=== PATIENT | female | born 1930 | race Caucasian/White ===

== ENCOUNTER 2016-08-11 13:07 | Inpatient (IN) | payer MEDICARE, MEDICAID ==
[~2016-08-11] VITALS: Ht 167.6 cm; Wt 59.9 kg
[~2016-08-11 13:07] MED LIST: ECON15CR2 TP; LIDO30AD10 TP
[2016-08-11] MEDS ORDERED: IV NS 0.9% 1,000 ML BAG IV ONE ×2 (13:30→14:30)
[2016-08-11] MEDS ORDERED: IV NS 0.9% 1,000 ML ONE ×2 (13:40→14:34)
[2016-08-11] MEDS ORDERED: IV SET PRIMARY PUMP SET 1 EA INFUS.SET MC ONE ×3 (13:40→17:00)
[2016-08-11 13:47] LABS: WHITE BLOOD COUNT (AUTO) 7.7 K/uL (4.3-11.0)
[2016-08-11 13:51] LABS: BASOPHILS % (AUTO) 0.4 % (0.0-2.0); DIFF TOTAL % 100 %; EOSINOPHILS % (AUTO) 0.4 % (0.0-6.0); HEMATOCRIT 29 % (33-45); HEMOGLOBIN 9.6 g/dL (11.5-14.8); LYMPHOCYTES # (AUTO) 0.7 /CMM (0.8-4.8); LYMPHOCYTES % (AUTO) 9.1 % (20.0-44.0); MEAN CORPUSCULAR HEMOGLOBIN 35 PG (26.0-33.0); MEAN CORPUSCULAR HGB CONC 33 g/dl (31.0-36.0); MEAN CORPUSCULAR VOLUME 105 fL (82-100); MONOCYTES # (AUTO) 0.8 /CMM (0.1-1.30); MONOCYTES % (AUTO) 10.6 % (2.0-12.0); NEUTROPHILS # (AUTO) 6.2 /CMM (1.8-8.9); NEUTROPHILS % (AUTO) 79.5 % (43.0-81.0); PLATELET COUNT (AUTO) 89 /CMM (150-450); RED BLOOD CELL COUNT(AUTO) 2.73 MIL/uL (4.0-5.2)
[2016-08-11 13:58] LABS: ANION GAP 17 (5-14); CALCIUM, SERUM 9.2 mg/dL (8.5-10.1); CARBON DIOXIDE 24 mmol/L (21-32); CHLORIDE 101 mmol/L (98-107); CREATININE 2.7 mg/dL (0.6-1.3); GLUCOSE 200 mg/dL (74-106); POTASSIUM 4.1 mmol/L (3.5-5.1); SODIUM SERUM 138 mmol/L (136-145); UREA NITROGEN, BLOOD 79 mg/dL (7-18)
[2016-08-11 14:01] LABS: INR 1.13 (0.87-1.13); PROTHROMBIN TIME 11.9 SECS (9.5-12.7)
[2016-08-11 14:04] LABS: TROPONIN I 0.128 ng/mL (0.00-0.056)
[2016-08-11] MEDS ORDERED: IV NS 0.9% 1,000 ML IV PRN (14:09)
[2016-08-11] MEDS ORDERED: WARF2TAB6 PO (14:11)
[2016-08-11] MEDS ORDERED: ASPI81TA2 PO (14:11)
[2016-08-11 14:13] LABS: LACTIC ACID 2.2 mmol/L (0.4-2.0)
[2016-08-11] MEDS ORDERED: LUBI8CAP PO (14:14)
[2016-08-11] MEDS ORDERED: AZIT250T6 PO (14:14)
[2016-08-11] MEDS ORDERED: AMLO2.5T2 PO (14:14)
[2016-08-11] MEDS ORDERED: CELE-85 PO (14:14)
[2016-08-11] MEDS ORDERED: FAMO20TA8 PO (14:14)
[2016-08-11] MEDS ORDERED: EPOE1VIA SQ (14:14)
[2016-08-11] MEDS ORDERED: SITA100T PO (14:14)
[2016-08-11] MEDS ORDERED: CHOL100044 PO (14:14)
[2016-08-11] MEDS ORDERED: ALLO100T PO (14:17)
[2016-08-11] MEDS ORDERED: CARV3.122 PO (14:17)
[2016-08-11] MEDS ORDERED: FOLI1TAB16 PO (14:17)
[2016-08-11] MEDS ORDERED: SPIR25TA4 PO (14:17)
[2016-08-11] MEDS ORDERED: DOCU-25 PO (14:17)
[2016-08-11] MEDS ORDERED: FERR325T28 PO (14:17)
[2016-08-11 14:19] LABS: ALANINE AMINOTRANSFERASE 18 U/L (12-78); ALBUMIN 3.5 g/dL (3.4-5.0); ASPARTATE AMINOTRANSFERASE 24 U/L (15-37); BILIRUBIN,DIRECT 0.4 mg/dL (0.0-0.2); BILIRUBIN,TOTAL 1.1 mg/dL (0.2-1.0); INDIRECT BILIRUBIN 0.7 mg/dL (0.0-1.1); TOTAL PROTEIN, SERUM 7.3 g/dL (6.4-8.2)
[2016-08-11] MEDS ORDERED: LEVOFLOXACIN 750 MG /D5W 150ML 750 MG in PREMIX 1 EA IV SCH (14:30)
[2016-08-11] MEDS ORDERED: LEVOFLOXACIN 750 MG /D5W 150ML PIGGYBACK IV ONE (14:30)
[2016-08-11] MEDS ORDERED: MAG HYDROX/AL HYDROX/SIMETH 30 ML UDC PO PRN (14:30)
[2016-08-11] MEDS ORDERED: Z GUARD REMEDY 2 OZ OINT TP PRN (14:30)
[2016-08-11] MEDS ORDERED: HYDROCODONE/APAP 5/325MG 1 EACH TABLET PO PRN (14:30)
[2016-08-11] MEDS ORDERED: ZOLPIDEM TARTRATE 5 MG TABLET PO PRN (14:30)
[2016-08-11] MEDS ORDERED: ONDANSETRON HCL/PF 4 MG/2 ML VIAL IVP PRN (14:30)
[2016-08-11] MEDS ORDERED: MAGNESIUM HYDROXIDE 30 ML UDC PO PRN (14:30)
[2016-08-11] MEDS ORDERED: LEVOFLOXACIN 750 MG /D5W 150ML 150 ML IV ONE (14:34)
[2016-08-11 14:44] LABS: *LACTIC ACID REFLEX FLAG YES
[2016-08-11 14:58] LABS: KETONES,URINE Trace (NEGATIVE); LEUKOCYTE ESTERASE ,URINE Negative (NEGATIVE)
[2016-08-11 14:59] LABS: ADD UA MICROSCOPIC YES
[2016-08-11 15:00] LABS: WBC,URINE 0-2 /HPF (0-3)
[2016-08-11 15:01] LABS: ADD URINE CULTURE NO
[2016-08-11] MEDS ORDERED: LIDOCAINE 5% (PATCH) 1 EA PATCH TP PRN (15:30)
[2016-08-11] MEDS ORDERED: LUBIPROSTONE 8 MCG PO SCH (17:00)
[2016-08-11] MEDS: DOCUSATE SODIUM 100 MG CAPSULE PO SCH (17:31)
[2016-08-11] MEDS: ALLOPURINOL 100 MG TABLET PO SCH (17:31)
[2016-08-11] MEDS: FOLIC ACID 1 MG TABLET PO SCH (17:31)
[2016-08-11] MEDS ORDERED: EPOETIN ALFA (40,000 UNIT) 40,000 UNIT/ML VIAL SQ SCH (18:00)
[2016-08-11 19:00] VITALS: BP 98/48
[2016-08-11 20:39] VITALS: BP 98/48
[2016-08-11] MEDS: AMLODIPINE BESYLATE 2.5 MG TABLET PO SCH (21:27)
[2016-08-12 08:00] VITALS: BP 120/52
[2016-08-12] MEDS: FERROUS SULFATE (325 MG) 325 MG/TAB TABLET PO SCH (08:40)
[2016-08-12] MEDS: PANTOPRAZOLE 40 MG TABLET.DR PO SCH (08:40)
[2016-08-12] MEDS: CHOLECALCIFEROL 1,000 UNIT TABLET (VIT D3) PO SCH (08:40)
[2016-08-12] MEDS: ALLOPURINOL 100 MG TABLET PO SCH ×2 (08:40→17:30)
[2016-08-12] MEDS: SITAGLIPTIN PHOSPHATE 50 MG TABLET PO SCH (08:40)
[2016-08-12] MEDS: FOLIC ACID 1 MG TABLET PO SCH ×2 (08:40→17:30)
[2016-08-12] MEDS: ASPIRIN 81 MG TAB.CHEW PO SCH (08:40)
[2016-08-12] MEDS: CARVEDILOL 3.125 MG TABLET PO SCH (08:41)
[2016-08-12] MEDS: DOCUSATE SODIUM 100 MG CAPSULE PO SCH ×3 (08:41→17:30)
[2016-08-12] MEDS ORDERED: SITAGLIPTIN PHOSPHATE 50 MG TABLET PO SCH (09:00)
[2016-08-12] MEDS ORDERED: HEPARIN SODIUM, PORCINE 5000 UNITS/1 ML VIAL IV ONE ×2 (10:30→11:40)
[2016-08-12] MEDS ORDERED: LACTULOSE 10 G/15 ML UDC (PYXIS) PO ONE (11:00)
[2016-08-12 12:33] LABS: DIFF TOTAL % 100 %; EOSINOPHILS # (AUTO) 0.1 /CMM (0.0-0.7); EOSINOPHILS % (AUTO) 1.4 % (0.0-6.0); HEMATOCRIT 29 % (33-45); HEMOGLOBIN 9.7 g/dL (11.5-14.8); LYMPHOCYTES # (AUTO) 0.9 /CMM (0.8-4.8); LYMPHOCYTES % (AUTO) 11.5 % (20.0-44.0); MEAN CORPUSCULAR HEMOGLOBIN 35 PG (26.0-33.0); MEAN CORPUSCULAR HGB CONC 33 g/dl (31.0-36.0); MEAN CORPUSCULAR VOLUME 105 fL (82-100); MONOCYTES # (AUTO) 0.5 /CMM (0.1-1.30); NEUTROPHILS # (AUTO) 6.1 /CMM (1.8-8.9); NEUTROPHILS % (AUTO) 81.1 % (43.0-81.0); PLATELET COUNT (AUTO) 93 /CMM (150-450); WHITE BLOOD COUNT (AUTO) 7.5 K/uL (4.3-11.0)
[2016-08-12 15:00] LABS: BAND % (MANUAL) 3 % (0.0-5.0); LYMPHOCYTES % (MANUAL) 15 % (16-48)
[2016-08-12 15:02] LABS: ANISOCYTOSIS 2+; HYPOCHROMASIA 1+; POIKILOCYTOSIS 1+
[2016-08-12 15:03] LABS: PLATELET ESTIMATE DECRE
[2016-08-12 15:04] LABS: TEAR DROP CELLS OCC
[2016-08-12 16:00] VITALS: BP 128/72
[2016-08-12] MEDS ORDERED: WARFARIN SODIUM 1 MG TABLET PO SCH (17:00)
[2016-08-12 17:53] LABS: THYROID STIMULATING HORMONE 1.071 uIU/mL (0.358-3.74); URIC ACID 5.4 mg/dL (2.6-7.2)
[2016-08-12 19:21] LABS: RETICULOCYTE COUNT 0.6 % (0.6-2.5)
[2016-08-12 20:00] VITALS: BP 152/83
[2016-08-12 22:00] VITALS: BP 152/83
[2016-08-12] MEDS: ATORVASTATIN 10 MG TABLET PO SCH (22:54)
[2016-08-12] MEDS: AMLODIPINE BESYLATE 2.5 MG TABLET PO SCH (22:55)
[2016-08-13] VITALS (14 sets, daily range): BP systolic 118–138; BP diastolic 56–88
[2016-08-13 07:26] LABS: BASOPHILS % (AUTO) 0.2 % (0.0-2.0); DIFF TOTAL % 100 %; EOSINOPHILS # (AUTO) 0.1 /CMM (0.0-0.7); EOSINOPHILS % (AUTO) 0.7 % (0.0-6.0); HEMATOCRIT 26 % (33-45); HEMOGLOBIN 8.8 g/dL (11.5-14.8); LYMPHOCYTES # (AUTO) 0.7 /CMM (0.8-4.8); LYMPHOCYTES % (AUTO) 10.1 % (20.0-44.0); MEAN CORPUSCULAR HEMOGLOBIN 35 PG (26.0-33.0); MEAN CORPUSCULAR HGB CONC 33 g/dl (31.0-36.0); MEAN CORPUSCULAR VOLUME 106 fL (82-100); MONOCYTES # (AUTO) 0.6 /CMM (0.1-1.30); MONOCYTES % (AUTO) 7.8 % (2.0-12.0); NEUTROPHILS % (AUTO) 81.2 % (43.0-81.0); PLATELET COUNT (AUTO) 79 /CMM (150-450); WHITE BLOOD COUNT (AUTO) 7.4 K/uL (4.3-11.0)
[2016-08-13 07:29] LABS: CALCIUM, SERUM 8.8 mg/dL (8.5-10.1); CREATININE 1.7 mg/dL (0.6-1.3)
[2016-08-13 07:34] LABS: INR 1.16 (0.87-1.13); PROTHROMBIN TIME 12.5 SECS (9.5-12.7)
[2016-08-13] MEDS: CARVEDILOL 3.125 MG TABLET PO SCH (08:44)
[2016-08-13] MEDS: CHOLECALCIFEROL 1,000 UNIT TABLET (VIT D3) PO SCH (08:44)
[2016-08-13] MEDS: SITAGLIPTIN PHOSPHATE 50 MG TABLET PO SCH (08:44)
[2016-08-13] MEDS: PANTOPRAZOLE 40 MG TABLET.DR PO SCH (08:44)
[2016-08-13] MEDS: FOLIC ACID 1 MG TABLET PO SCH ×2 (08:44→17:13)
[2016-08-13] MEDS: ASPIRIN 81 MG TAB.CHEW PO SCH (08:44)
[2016-08-13] MEDS: FERROUS SULFATE (325 MG) 325 MG/TAB TABLET PO SCH (08:44)
[2016-08-13] MEDS: ALLOPURINOL 100 MG TABLET PO SCH ×2 (08:45→17:14)
[2016-08-13] MEDS: DOCUSATE SODIUM 100 MG CAPSULE PO SCH ×2 (08:46→17:00)
[2016-08-13 09:16] LABS: BAND % (MANUAL) 3 % (0.0-5.0); EOSINOPHILS % (MANUAL) 2 % (0-4); LYMPHOCYTES % (MANUAL) 6 % (16-48)
[2016-08-13 09:17] LABS: ANISOCYTOSIS 1+; PLATELET ESTIMATE DECREASED
[2016-08-13] MEDS ORDERED: IV NS 0.9% 250 ML IV ONE (14:10)
[2016-08-13] MEDS ORDERED: BLOOD IV SET 1 EA INFUS.SET MC ONE (14:10)
[2016-08-13] MEDS: ACETAMINOPHEN 325 MG TABLET PO PRN (14:29)
[2016-08-13] MEDS: HEPARIN INFUSION/D5W 500 ML IV PRN (14:37)
[2016-08-13] MEDS ORDERED: diphenhydrAMINE HCL 25 MG CAPSULE PO PRN (15:00)
[2016-08-13] MEDS ORDERED: LEVOFLOXACIN 500 MG /D5W 100ML 500 MG in PREMIX 1 EA IV SCH (15:00)
[2016-08-13] MEDS ORDERED: IV SET PRIMARY PUMP SET 1 EA INFUS.SET MC ONE (16:04)
[2016-08-13] MEDS: ATORVASTATIN 10 MG TABLET PO SCH (21:42)
[2016-08-13] MEDS: AMLODIPINE BESYLATE 2.5 MG TABLET PO SCH (21:42)
[2016-08-14] VITALS: BP 155/75
[2016-08-14 01:00] VITALS: BP 142/88
[2016-08-14 04:00] VITALS: BP 141/64
[2016-08-14 07:20] LABS: BASOPHILS % (AUTO) 0.5 % (0.0-2.0); DIFF TOTAL % 100 %; EOSINOPHILS # (AUTO) 0.1 /CMM (0.0-0.7); EOSINOPHILS % (AUTO) 1.6 % (0.0-6.0); HEMATOCRIT 31 % (33-45); HEMOGLOBIN 10.1 g/dL (11.5-14.8); LYMPHOCYTES # (AUTO) 0.7 /CMM (0.8-4.8); LYMPHOCYTES % (AUTO) 10.2 % (20.0-44.0); MEAN CORPUSCULAR HEMOGLOBIN 33 PG (26.0-33.0); MEAN CORPUSCULAR HGB CONC 33 g/dl (31.0-36.0); MEAN CORPUSCULAR VOLUME 100 fL (82-100); MONOCYTES # (AUTO) 0.5 /CMM (0.1-1.30); MONOCYTES % (AUTO) 7.8 % (2.0-12.0); NEUTROPHILS # (AUTO) 5.3 /CMM (1.8-8.9); NEUTROPHILS % (AUTO) 79.9 % (43.0-81.0); RED BLOOD CELL COUNT(AUTO) 3.07 MIL/uL (4.0-5.2); WHITE BLOOD COUNT (AUTO) 6.6 K/uL (4.3-11.0)
[2016-08-14 07:45] LABS: CREATININE 1.5 mg/dL (0.6-1.3)
[2016-08-14 07:47] LABS: INR 1.14 (0.87-1.13); PROTHROMBIN TIME 12.3 SECS (9.5-12.7)
[2016-08-14 07:55] LABS: PLATELET COUNT (AUTO) 65 /CMM (150-450)
[2016-08-14 08:00] VITALS: BP 144/67
[2016-08-14] MEDS: FERROUS SULFATE (325 MG) 325 MG/TAB TABLET PO SCH ×2 (08:42→08:59)
[2016-08-14] MEDS: ASPIRIN 81 MG TAB.CHEW PO SCH (08:42)
[2016-08-14] MEDS: PANTOPRAZOLE 40 MG TABLET.DR PO SCH (08:42)
[2016-08-14] MEDS: CHOLECALCIFEROL 1,000 UNIT TABLET (VIT D3) PO SCH (08:43)
[2016-08-14] MEDS: FOLIC ACID 1 MG TABLET PO SCH ×2 (08:43→16:21)
[2016-08-14] MEDS: SITAGLIPTIN PHOSPHATE 50 MG TABLET PO SCH (08:43)
[2016-08-14] MEDS: ALLOPURINOL 100 MG TABLET PO SCH ×2 (08:43→16:21)
[2016-08-14] MEDS: CARVEDILOL 3.125 MG TABLET PO SCH (08:44)
[2016-08-14 09:14] LABS: ANISOCYTOSIS 1+; BAND % (MANUAL) 2 % (0.0-5.0); LYMPHOCYTES % (MANUAL) 10 % (16-48); PLATELET ESTIMATE DECREASED
[2016-08-14 09:15] LABS: TEAR DROP CELLS 1+; TOXIC GRANULATION 1+
[2016-08-14] MEDS ORDERED: AMOX-430 PO (11:33)
[2016-08-14] MEDS ORDERED: CLOP75TA2 PO (11:33)
[2016-08-14] MEDS ORDERED: SECONDARY IV SET 1 EA INFUS.SET MC ONE (11:46)
[2016-08-14] MEDS: Magnesium 1GM/D5W 100ML PREMIX 100 ML IV SCH ×4 (11:52→16:21)
[2016-08-14] MEDS: HEPARIN INFUSION/D5W 500 ML IV PRN (11:52)
[2016-08-14] MEDS ORDERED: IV NS 0.9% 250 ML IV ONE (11:55)
[2016-08-14] MEDS ORDERED: IV SET PRIMARY PUMP SET 1 EA INFUS.SET MC ONE ×2 (11:55→11:59)
[2016-08-14 12:00] VITALS: BP 131/73
[2016-08-14 16:00] VITALS: BP 113/51
[2016-08-14] MEDS: DOCUSATE SODIUM 100 MG CAPSULE PO SCH (16:21)
[2016-08-14] MEDS: ACETAMINOPHEN 325 MG TABLET PO PRN (17:15)
[2016-08-17] MEDS ORDERED: SPIRONOLACTONE 25 MG TABLET PO SCH (09:00)
== END 2016-08-14 19:05 | disposition home health service (06) | DRG 871 ==
LOC: ER 13:09 → UNDOADMIN 14:37 → MED 14:37 → ER 15:00 → MED 16:11 → TELE 08-12 21:58 → MED 08-14 14:51
PROVIDERS: ADMIT Family Medicine; ATTEND Family Medicine
PROC: 30233N1 Transfusion of Nonautologous Red Blood Cells into Peripheral Vein, Percutaneous Approach (ICD-10-PCS; principal; 2016-08-13)
DX: A41.9 Sepsis, unspecified organism (principal); I21.4 Non-ST elevation (NSTEMI) myocardial infarction; N17.0 Acute kidney failure with tubular necrosis; J69.0 Pneumonitis due to inhalation of food and vomit; D68.59 Other primary thrombophilia; E87.2 Acidosis; E11.22 Type 2 diabetes mellitus with diabetic chronic kidney disease; I12.9 Hypertensive chronic kidney disease with stage 1 through stage 4 chronic kidney disease, or unspecified chronic kidney disease; N18.9 Chronic kidney disease, unspecified; D53.9 Nutritional anemia, unspecified; D69.6 Thrombocytopenia, unspecified; E86.0 Dehydration; I25.10 Atherosclerotic heart disease of native coronary artery without angina pectoris; I35.0 Nonrheumatic aortic (valve) stenosis; I48.0 Paroxysmal atrial fibrillation; Z86.73 Personal history of transient ischemic attack (TIA), and cerebral infarction without residual deficits; Z87.11 Personal history of peptic ulcer disease; Z90.49 Acquired absence of other specified parts of digestive tract; M10.9 Gout, unspecified; R59.0 Localized enlarged lymph nodes; R04.0 Epistaxis; T39.395A Adverse effect of other nonsteroidal anti-inflammatory drugs [NSAID], initial encounter; I95.9 Hypotension, unspecified
CPT/HCPCS: 36415; 71010-TC; 71020-TC; 76700-TC; 80048-TC; 80076-TC; 81000-TC; 82306; 82378; 82728-TC; 82746; 82962-TC; 83540-TC; 83605-TC; 83615-TC; 83735-TC; 84100-TC; 84155; 84165; 84443-TC; 84484-TC; 84550-TC; 85025-TC; 85045-TC; 85610-TC; 85652-TC; 85730-TC; 86850-TC; 86921-TC; 87040-TC; 87070-TC; 87081-TC; 87086-TC; 87340; 87400; 93307-TC; 97001-TC; A4216; A4606; J0885; J1644; J1956; J3475; J7030; J7050; P9016-BL; Q0163; Z7610